=== PATIENT | female | born 1975 ===

== ENCOUNTER 2017-02-04 00:21 | Emergency (ER) | payer SELFPAY ==
[2017-02-04 00:40] VITALS: BP 114/78; PULSE 74; RESP 20; TEMP 99.4; O2SAT 99
--- NOTE | 2017-02-04 00:57 | C.PDOC ---
History Of Present Illness pt states she drank some alcohol and did cocaine. and fell asleep in th [place]. Denies any suicidal or homicidal ideation. Is [id number] Time Seen by Provider: 02/04/17 00:56 Chief Complaint (Nursing): Substance Abuse History Per: Patient, EMS History/Exam Limitations: no limitations Onset/Duration Of Symptoms: Hrs Current Symptoms Are (Timing): Gone Suicide/Self Injury Attempted (Context): None Modifying Factor(s): Alcohol, Cocaine Severity: None Associated Symptoms: denies: Anger, Anxiety, Depression, Suicidal Thoughts Involuntary Hold By: None Recent travel outside of the [place]: No Additional History Per: Patient, EMS Past Medical History Reviewed: Historical Data, Nursing Documentation, Vital Signs Vital Signs: Last Vital Signs Temp 99.4 F 02/04/17 00:36 Pulse 74 02/04/17 00:36 Resp 20 02/04/17 00:36 BP 114/78 02/04/17 00:36 Pulse Ox 99 02/04/17 00:57 Family History: States: No Known Family Hx - Social History Hx Alcohol Use: Yes Hx Substance Use: Yes (coccaine) - Immunization History Hx Tetanus Toxoid Vaccination: No Hx Influenza Vaccination: No Hx Pneumococcal Vaccination: No Review Of Systems Constitutional: Negative for: Fever, Chills Cardiovascular: Negative for: Chest Pain Respiratory: Negative for: Shortness of Breath Gastrointestinal: Negative for: Nausea, Vomiting, Abdominal Pain Skin: Negative for: Rash Neurological: Negative for: Weakness, Altered Mental Status Psych: Negative for: Anxiety, Suicidal ideation Physical Exam - Physical Exam Appears: Non-toxic, No Acute Distress Skin: Warm, Dry Head: Normacephalic Eye(s): bilateral: Normal Inspection Chest: Symmetrical Cardiovascular: Rhythm Regular Respiratory: No Rales, No Rhonchi, No Wheezing Gastrointestinal/Abdominal: Soft, No Tenderness Extremity: Normal ROM Extremity: Bilateral: Atraumatic Neurological/Psych: Oriented x3, Normal Speech, Normal Cognition Gait: Steady ED Course And Treatment O2 Sat by Pulse Oximetry: 99 Pulse Ox Interpretation: Normal Progress Note: ambulating without difficulty Disposition Counseled Patient/Family Regarding: Studies Performed, Diagnosis, Need For Followup - Disposition Referrals: [facility] [Outside] Disposition: HOME/ ROUTINE Disposition Time: 00:57 Condition: FAIR Instructions: Alcohol Intoxication (DC) Forms: [facility] (Maltese) - Clinical Impression Clinical Impression: Alcohol intoxication
== END 2017-02-04 01:18 | disposition home or self-care (01) ==
LOC: C.ER 00:21
DX: F10.129 Alcohol abuse with intoxication, unspecified (principal)